=== PATIENT | female | born 1980 | race Hispanic/Latino ===

== ENCOUNTER 2017-03-28 20:20 | Emergency (ER) | payer SELFPAY ==
[2017-03-28] MEDS ORDERED: HYDROcodone/Acetaminophen 10/325 mg Tablet ONE (20:59)
[2017-03-28] MEDS ORDERED: Naproxen 500 MG TAB ONE (20:59)
[2017-03-28] MEDS ORDERED: Cephalexin 500 MG CAP ONE (20:59)
== END 2017-03-28 21:24 | disposition home or self-care (01) ==
LOC: MADERS 20:20
DX: J01.90 Acute sinusitis, unspecified (principal); E11.9 Type 2 diabetes mellitus without complications; I10 Essential (primary) hypertension
CPT/HCPCS: 99283